=== PATIENT | female | born 1935 ===

== ENCOUNTER 2019-02-07 13:08 | Outpatient (CLI) | payer MEDICARE, OTHER ==
[~2019-02-07 13:08] MED LIST: ACET325T26 PO; ATEN25TA PO; ATOR40TA PO; CALC-141 PO; CALC1TAB63 PO; CALC200T3 PO; CHOL200052 PO; CITA40TA12 PO; DULO30CA2 PO; FAMO-79 PO; FLUN25SP INH; FLUN25SP NAS; FLUT12HF2 INH; IBUP200T64 PO; IPRA4AER INH; LORA1TAB PO; MAGN400T9 PO; MULT-257 PO; MULTIVITAMIN; OMEP-110 PO; SENN-177 PO; TRAM-47 PO
== END 2019-02-07 23:59 | disposition home or self-care (01) ==
LOC: CFH 13:08
PROVIDERS: ATTEND Registered Nurse
DX: R05 Cough (principal); E66.9 Obesity, unspecified; M47.814 Spondylosis without myelopathy or radiculopathy, thoracic region; M85.88 Other specified disorders of bone density and structure, other site; M19.90 Unspecified osteoarthritis, unspecified site; F17.210 Nicotine dependence, cigarettes, uncomplicated; Z83.3 Family history of diabetes mellitus; Z82.49 Family history of ischemic heart disease and other diseases of the circulatory system
CPT/HCPCS: 71250

== ENCOUNTER 2020-07-16 15:31 | Emergency (ER) | payer MEDICARE, MEDICAID ==
[~2020-07-16] VITALS: Ht 162.6 cm; Wt 88.8 kg
[2020-07-16] MEDS: ACETAMINOPHEN 325 MG TABLET PO ONE ×2 (16:00→17:10)
--- NOTE | 2020-07-16 16:14 | NUR ---
PT C/O OF PAIN IN RIGHT LEG WHICH HAS STARTED ABOUT A WEEK AGO. PULMONARY DOCTOR BROUGHT PT OVER TO ER BECAUSE THEY ARE SUSPECTING A BLOOD CLOT. PT HAS CMS IN RIGHT FOOT. FOOT IS COOL TO TOUCH. PT STATING PAIN IN RIGHT FOOT BIG TOE
[2020-07-16] MEDS ORDERED: ACETAMINOPHEN 325 MG TABLET ONE (17:07)
--- NOTE | 2020-07-16 17:49 | NUR ---
GAVE PT NON SLIP SOCKS AND TOOK TO BATHROOM
[2020-07-16 18:56] VITALS: BP 138/66
== END 2020-07-16 18:58 | disposition home or self-care (01) ==
LOC: ED 18:30
DX: I82.4Z3 Acute embolism and thrombosis of unspecified deep veins of distal lower extremity, bilateral (principal); I48.91 Unspecified atrial fibrillation; I10 Essential (primary) hypertension; J44.9 Chronic obstructive pulmonary disease, unspecified; Z86.73 Personal history of transient ischemic attack (TIA), and cerebral infarction without residual deficits
CPT/HCPCS: 93005; 99284

== ENCOUNTER 2020-07-23 09:36 | Emergency (ER) | payer MEDICARE, MEDICAID ==
[~2020-07-23] VITALS: Ht 167.6 cm; Wt 89.0 kg
--- NOTE | 2020-07-23 10:04 | NUR ---
EKG IN TRIAGE Addendum: 07/23/20 at 1022 by CBRUCIAGA PT AMBULATED STEADILY W/ A STAND BY ASSIST TO THE BATHROOM.
--- NOTE | 2020-07-23 10:18 | NUR ---
THIS IS A 85 YO F WHO REPORTS BEING SEEN IN THIS ED X1 WEEK AGO FOR DVT IN RT LEG. PT REPORTS ERP TOLD HER TO COME B ACK TODAY FOR REEVAL OF DVT. PT STATES SHE CAN'T BE ON BLOOD THINNERS R/T HX OF BLEEDING. PT REPORTS NO WORSENING SYMPTOMS BUT STILL HAS PAIN WHEN WALKING. AT BEDSIDE FOR EVAL. RESP EVEN AND UNLABORED, NADN.
[2020-07-23 10:48] LABS: BASOPHILS % (AUTO) 1 % (0-1); EOSINOPHILS % (AUTO) 4 % (1-7); LYMPHOCYTES % (AUTO) 15 % (22-44); MEAN CORPUSCULAR HGB CONC 33.9 g/dL (32.4-35.8); MEAN PLATELET VOLUME 6.8 fL (7.4-10.4); MONOCYTES % (AUTO) 16 % (2-9); NEUTROPHILS % (AUTO) 65 % (42-75); PLATELET COUNT 226 x10^3/uL (130-400); RED BLOOD COUNT 3.68 x10^6/uL (3.82-5.3); RED CELL DISTRIBUTION WIDTH 13.7 % (9.6-15.2)
[2020-07-23 10:55] LABS: MD NO
[2020-07-23 10:59] LABS: ALANINE AMINOTRANSFERASE 20 U/L (12-78); ALBUMIN 3.6 g/dL (3.4-5.0); ANION GAP 5 mmol/L (5-15); CALCIUM 8.9 mg/dL (8.5-10.1); CHLORIDE 107 mmol/L (98-107); CREATININE 0.66 mg/dL (0.55-1.02)
--- NOTE | 2020-07-23 11:00 | NUR ---
PT RESTING ON GURNEY W/ CALL LIGHT IN REACH AND SIDE RAILS UPX2. RESP EVEN AND UNLABORED, SALVATORE.
[2020-07-23 11:02] LABS: ALKALINE PHOSPHATASE 100 U/L (45-117); BILIRUBIN,TOTAL 0.5 mg/dL (0.2-1.0); TOTAL PROTEIN 6.8 g/dL (6.4-8.2)
[2020-07-23 12:11] VITALS: BP 132/58
--- NOTE | 2020-07-23 12:38 | NUR ---
Patient given discharge instructions and they have confirmed that they understand the instructions. Patient ambulatory with steady gait.
== END 2020-07-23 12:39 | disposition home or self-care (01) ==
LOC: ED 10:48
DX: I80.01 Phlebitis and thrombophlebitis of superficial vessels of right lower extremity (principal); J02.9 Acute pharyngitis, unspecified; R05 Cough; R06.89 Other abnormalities of breathing; R94.31 Abnormal electrocardiogram [ECG] [EKG]; I10 Essential (primary) hypertension; I48.91 Unspecified atrial fibrillation; Z86.73 Personal history of transient ischemic attack (TIA), and cerebral infarction without residual deficits; Z86.718 Personal history of other venous thrombosis and embolism
CPT/HCPCS: 36415; 71045; 80053; 85025; 93005; 99285

== ENCOUNTER 2020-07-26 12:47 | Emergency (ER) | payer MEDICARE, MEDICAID ==
[~2020-07-26] VITALS: Ht 170.2 cm; Wt 88.0 kg
--- NOTE | 2020-07-26 12:55 | NUR ---
EKG IN TRIAGE
[2020-07-26] MEDS ORDERED: MORPHINE SULFATE 4 MG/ML, 1ML IVPush PRN (14:00)
[2020-07-26] MEDS ORDERED: SODIUM CHLORIDE FLUSH 10ML SYR IVF ONE (14:00)
[2020-07-26] MEDS ORDERED: ONDANSETRON 2MG/ML, 2ML IVPush ONE (14:00)
--- NOTE | 2020-07-26 14:11 | NUR ---
PIV PLACED, LABS DRAWN. PT DENIES PAIN AT THIS TIME, NO MORPHINE ADMIN. PT CONNECTED TO MONITORING. CALL LIGHT IN REACH.
--- NOTE | 2020-07-26 14:34 | NUR ---
US AT BEDSIDE
--- NOTE | 2020-07-26 15:00 | NUR ---
PT AMBULATED TO RESTROOM WITH STEADY GAIT.
[2020-07-26 15:05] LABS: ALBUMIN 3.8 g/dL (3.4-5.0); ANION GAP 5 mmol/L (5-15); CALCIUM 9.1 mg/dL (8.5-10.1); CHLORIDE 105 mmol/L (98-107)
[2020-07-26 15:10] LABS: ALANINE AMINOTRANSFERASE 25 U/L (12-78); ALKALINE PHOSPHATASE 103 U/L (45-117); BASOPHILS % (AUTO) 1 % (0-1); BILIRUBIN,TOTAL 0.5 mg/dL (0.2-1.0); CREATININE 0.65 mg/dL (0.55-1.02); EOSINOPHILS % (AUTO) 5 % (1-7); LYMPHOCYTES % (AUTO) 17 % (22-44); MEAN CORPUSCULAR HEMOGLOBIN 31.8 pg (27.0-34.8); MEAN CORPUSCULAR HGB CONC 33.8 g/dL (32.4-35.8); MEAN PLATELET VOLUME 7.1 fL (7.4-10.4); MONOCYTES % (AUTO) 12 % (2-9); NEUTROPHILS % (AUTO) 65 % (42-75); PLATELET COUNT 243 x10^3/uL (130-400); RED BLOOD COUNT 3.88 x10^6/uL (3.82-5.3); RED CELL DISTRIBUTION WIDTH 13.6 % (9.6-15.2); TOTAL PROTEIN 7.2 g/dL (6.4-8.2); TROPONIN I < 0.015 ng/mL (0.000-0.045)
[2020-07-26 15:12] LABS: MD NO
--- NOTE | 2020-07-26 15:38 | NUR ---
PT GOING TO CT
[2020-07-26] MEDS ORDERED: OMNIPAQUE 350 MG/ML, 75ML BOTTLE ONE (15:52)
--- NOTE | 2020-07-26 16:13 | NUR ---
ALL RESULTS ARE BACK AT THIS TIME. CHART UP FOR RECHECK.
--- NOTE | 2020-07-26 17:00 | NUR ---
Break RN note: Dr. Self at bedside to discuss POC with pt.
[2020-07-26 17:32] VITALS: BP 130/78
== END 2020-07-26 17:34 | disposition home or self-care (01) ==
LOC: ED 13:26
DX: M79.622 Pain in left upper arm (principal); M79.661 Pain in right lower leg; R06.02 Shortness of breath; R51.9 Headache, unspecified; R07.89 Other chest pain; I10 Essential (primary) hypertension; R94.31 Abnormal electrocardiogram [ECG] [EKG]; Z88.8 Allergy status to other drugs, medicaments and biological substances; Z87.891 Personal history of nicotine dependence
CPT/HCPCS: 36415; 71275; 80053; 84484; 85025; 93005; 93971; 99285; Q9967